=== PATIENT | male | born 1990 | race Caucasian/White ===

== ENCOUNTER 2020-04-15 00:57 | Emergency (ER) | payer OTHER, SELFPAY ==
[2020-04-15] MEDS ORDERED: Ketorolac 60 MG/2 ML SDV IM ONE (01:38)
--- NOTE | 2020-04-15 01:44 | EDM.PDOC ---
ED HPI GENERAL MEDICAL PROBLEM - General Chief Complaint: Lower Extremity Injury/Pain Stated Complaint: SWOLLEN RIGHT FOOT Time Seen by Provider: 04/15/20 01:30 Source of Information: Reports: Patient, RN History Limitations: Reports: No Limitations - History of Present Illness INITIAL COMMENTS - FREE TEXT/NARRATIVE: 29 yo male presents with R foot and ankle pain and swelling. Pain is worse the past couple of days, but has been present for several weeks. Has not been seen for this problem before tonight. Pain is worse with movement of that foot/ankle. Denies injury. Has tried OTC agents without clear relief. Seems worse at night. Onset: Gradual Duration: Week(s):, Getting Worse Location: Reports: Lower Extremity, Right Quality: Reports: Ache (at rest), Sharp (with movement) Severity: Moderate Improves with: Reports: Rest Worsens with: Reports: Movement Context: Reports: Other (See HPI) Associated Symptoms: Reports: No Other Symptoms Treatments CRM CONSULTANT: Reports: Acetaminophen, Other (see below) ([place] 1) Right Ankle Pain Score (Numeric/FACES): 8 - Related Data Allergies Allergy/AdvReac Type Severity Reaction Status Date / Time Tetanus Vaccines and Toxoid Allergy Other Verified 04/15/20 01:10 Home Meds: Home Meds . [No Known Home Meds] 1 tab PO ONCALL 04/15/20 [History] Past Medical History Psychiatric History: Reports: ADHD Social & Family History - Family History Family Medical History: Noncontributory - Tobacco Use Smoking Status *Q: Current Every Day Smoker Years of Tobacco use: 9 Packs/Tins Daily: 0.3 - Caffeine Use Caffeine Use: Reports: Coffee, Soda - Recreational Drug Use Recreational Drug Use: No Review of Systems - Review of Systems Review Of Systems: See Below Constitutional: Reports: No Symptoms Musculoskeletal: Reports: Foot Pain (R foot), Joint Pain (R ankle) Skin: Reports: No Symptoms Neurological: Reports: No Symptoms ED EXAM, GENERAL - Physical Exam Exam: See Below Exam Limited By: No Limitations General Appearance: Alert, WD/WN, No Apparent Distress Extremities: Pedal Edema (subtle swelling of R foot and ankle), Limited Range of Motion (due to pain of R foot and ankle). No: Kathi's Sign, Increased Warmth, Redness Neurological: Oriented, CN II-XII Intact, Normal Cognition, No Motor/Sensory Deficits Psychiatric: Normal Affect, Normal Mood Skin Exam: Warm, Dry, Intact, Normal Color, No Rash. No: Diaphoretic, Ecch ymosis, Erythema, Increased Warmth, Lymphangitis, Petechiae, Rash, Wound/Incision, Zoster-Like Rash Course - Vital Signs Last Recorded V/S: Last Vital Signs Temp 36.6 C 04/15/20 01:18 Pulse 68 04/15/20 01:18 Resp 16 04/15/20 01:18 BP 150/93 H 04/15/20 01:18 Pulse Ox 99 04/15/20 01:18 - Orders/Labs/Meds Orders: Active Orders 24 hr Category Date Time Status Ankle Min 3V Rt [CR] Stat Exams 04/15/20 01:37 Taken Foot Comp Min 3V Rt [CR] Stat Exams 04/15/20 01:37 Taken Labs: Laboratory Tests 04/15/20 Range/Units 01:53 C-Reactive Protein 0.24 (0.0-0.3) mg/dL Meds: Medications Discontinued Medications Generic Name Dose Route Start Last Admin Trade Name Jayjay PRN Reason Stop Dose Admin Ketorolac Tromethamine 60 mg 04/15/20 01:38 04/15/20 01:50 Toradol IM 04/15/20 01:39 60 mg ONETIME ONE Administration - Radiology Interpretation Free Text/Narrative:: R foot X-ray-neg R ankle X-ray-neg Departure - Departure Time of Disposition: 02:30 Disposition: Home, Self-Care 01 Condition: Fair Clinical Impression: Pain, joint, ankle and foot Qualifiers: Laterality: right Qualified Code(s): M25.571 - Pain in right ankle and joints of right foot - Discharge Information *PRESCRIPTION DRUG MONITORING PROGRAM REVIEWED*: No *COPY OF PRESCRIPTION DRUG MONITORING REPORT IN PATIENT JAVIER: No Instructions: Joint Pain Referrals: PCP,None [Primary Care Provider] - Forms: ED Department Discharge Additional Instructions: Take Aleve(generic) 2 every 8 hrs with food for pain relief. During the day use up to acetaminophen 1000 mg every 6 hrs for added relief. At night may substitute [place] for the acetaminophen. F/U with podiatry, someone will call you for an appt. See your family doctor in the interim if you need to be seen sooner. No weight bearing on the right until cleared medically. Use either crutches or a knee walker to get around. Elevate your foot to reduce swelling. Sepsis Event Note (ED) - Evaluation Sepsis Screening Result: No Definite Risk - Focused Exam Vital Signs: Vital Signs Temp Pulse Resp BP Pulse Ox 04/15/20 01:18 36.6 C 68 16 150/93 H 99 - My Orders Last 24 Hours: My Active Orders 04/15/20 01:37 Ankle Min 3V Rt [CR] Stat Foot Comp Min 3V Rt [CR] Stat - Assessment/Plan Last 24 Hours: My Active Orders 04/15/20 01:37 Ankle Min 3V Rt [CR] Stat Foot Comp Min 3V Rt [CR] Stat
--- NOTE | 2020-04-15 13:19 | CR ---
FOOT RIGHT 3 views CLINICAL HISTORY:Pain and swelling FINDINGS:There is no fracture or dislocation. There is mild space narrowing at the first MTP joint Impression: No fracture or dislocation
--- NOTE | 2020-04-15 13:20 | CR ---
Ankle Min 3V Rt CLINICAL HISTORY: Pain and swelling FINDINGS: The soft tissues are mildly swollen. No acute fracture or dislocation is noted. Ankle mortise is intact. Articular surfaces are smooth. Impression: Mild soft tissue swelling No fracture
== END 2020-04-15 02:45 | disposition home or self-care (01) ==
LOC: JP.ED 00:57
DX: M25.571 Pain in right ankle and joints of right foot (principal); F17.210 Nicotine dependence, cigarettes, uncomplicated; Z88.8 Allergy status to other drugs, medicaments and biological substances
CPT/HCPCS: 36415; 73610; 73630; 86140; 96372; 99284; J1885; 99283

== ENCOUNTER 2020-12-03 16:15 | Emergency (ER) | payer BC, MEDICAID ==
[2020-12-03] MEDS ORDERED: Albuterol/Ipratropium 3.0-0.5 MG/3 ML Neb Soln NEB ONE (16:53)
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
== END 2020-12-03 17:40 | disposition home or self-care (01) ==
LOC: JP.ED 16:15
DX: T59.811A Toxic effect of smoke, accidental (unintentional), initial encounter (principal); Z88.7 Allergy status to serum and vaccine; Z72.0 Tobacco use; G30.9 Alzheimer's disease, unspecified; F02.80 Dementia in other diseases classified elsewhere, unspecified severity, without behavioral disturbance, psychotic disturbance, mood disturbance, and anxiety
CPT/HCPCS: 36600; 71046; 71046-26; 82803; 94640; 99284; 99284-25; J7620-GY